=== PATIENT | female | born 1985 | race Caucasian/White ===

== ENCOUNTER 2022-02-09 11:40 | Inpatient (IN) | payer SELFPAY ==
[~2022-02-09] VITALS: Ht 170.2 cm; Wt 63.1 kg
[2022-02-09 12:19] LABS: BASOPHILS # (AUTO) 0.1 (0.0-0.1); BASOPHILS % 0.7 % (0.0-1.0); EOSINOPHILS # (AUTO) 0.2 (0.0-0.4); EOSINOPHILS % 2.3 % (0.0-6.0); LYMPHOCYTES # (AUTO) 1.4 (1.0-3.2); LYMPHOCYTES % 18.6 % (18.0-39.1); MEAN CORPUSCULAR HEMOGLOBIN 28.5 pg (28-32); MEAN CORPUSCULAR HGB CONC 34.5 g/dL (31-35); MEAN CORPUSCULAR VOLUME 82.5 fL (81-99); MONOCYTES # (AUTO) 0.8 (0.2-0.8); MONOCYTES % 10.3 % (4.4-11.3); NEUTROPHILS # (AUTO) 4.9 (2.1-6.9); NEUTROPHILS % 67.5 % (38.7-80.0); PLATELET COUNT 87 x10e3/uL (140-360); RED BLOOD COUNT 2.46 x10e6/uL (3.6-5.1); RED CELL DISTRIBUTION WIDTH 15.4 % (11.7-14.4)
[2022-02-09 12:21] LABS: HEMATOCRIT 20.3 % (34.2-44.1)
[2022-02-09 12:22] LABS: MAGNESIUM 2.2 MG/DL (1.3-2.1)
[2022-02-09 12:25] LABS: ALBUMIN 3.5 g/dL (3.5-5.0); ALBUMIN/GLOBULIN RATIO 1.3 (0.8-2.0); ANION GAP 18.8 mmol/L (8-16); CALCIUM 9.1 mg/dL (8.4-10.2); CREATININE, SERUM 7.11 mg/dL (0.57-1.11); POTASSIUM 3.8 mmol/L (3.5-5.1)
[2022-02-09] MEDS: HYDRALAZINE HCL 20 MG/ML VIAL IV PRN ×3 (13:25→23:59)
[2022-02-09] MEDS: HYDROCODONE/APAP 5MG-325MG TAB PO PRN ×2 (13:50→20:06)
[2022-02-09] MEDS ORDERED: CLONIDINE HCL 0.2 MG TAB PO ONE (14:00)
[2022-02-09] MEDS ORDERED: SODIUM CHLORIDE FLUSH 10 ML SYR INJ PRN (14:45)
[2022-02-09 17:32] VITALS: BP 165/118
[2022-02-09 17:37] VITALS: BP 165/118
[2022-02-09 17:48] VITALS: BP 165/118
[2022-02-09 19:34] VITALS: BP 179/112
[2022-02-09 20:35] LABS: CREATINE KINASE MB 0.6 ng/mL (0-5.0)
[2022-02-09 23:38] VITALS: BP 179/112
[2022-02-09 23:57] VITALS: BP 179/99
[2022-02-10] VITALS (9 sets, daily range): BP systolic 150–190; BP diastolic 85–112
[2022-02-10] MEDS ORDERED: ACETAMINOPHEN 325 MG TAB PO PRN (00:15)
[2022-02-10] MEDS ORDERED: POLYETHYLENE GLYCOL 3350 17 GM PACK PO PRN (00:15)
[2022-02-10 01:11] LABS: CREATINE KINASE MB 0.5 ng/mL (0-5.0)
[2022-02-10] MEDS: HYDROCODONE/APAP 5MG-325MG TAB PO PRN ×2 (04:48→11:08)
[2022-02-10 04:56] LABS: BASOPHILS % 0.8 % (0.0-1.0); EOSINOPHILS # (AUTO) 0.2 (0.0-0.4); EOSINOPHILS % 3.1 % (0.0-6.0); LYMPHOCYTES # (AUTO) 1.5 (1.0-3.2); LYMPHOCYTES % 29.1 % (18.0-39.1); MEAN CORPUSCULAR HEMOGLOBIN 27.8 pg (28-32); MEAN CORPUSCULAR HGB CONC 31.9 g/dL (31-35); MEAN CORPUSCULAR VOLUME 87.1 fL (81-99); MONOCYTES # (AUTO) 0.6 (0.2-0.8); MONOCYTES % 11.2 % (4.4-11.3); NEUTROPHILS # (AUTO) 2.8 (2.1-6.9); NEUTROPHILS % 55.6 % (38.7-80.0); PLATELET COUNT 93 x10e3/uL (140-360); RED BLOOD COUNT 2.41 x10e6/uL (3.6-5.1); RED CELL DISTRIBUTION WIDTH 15.4 % (11.7-14.4)
[2022-02-10 05:13] LABS: ALBUMIN 3.2 g/dL (3.5-5.0); ALBUMIN/GLOBULIN RATIO 1.2 (0.8-2.0); ANION GAP 15.1 mmol/L (8-16); CALCIUM 9.2 mg/dL (8.4-10.2); CHOL/HDL RATIO 3.5 (3.0-3.6); CREATININE, SERUM 8.62 mg/dL (0.57-1.11); POTASSIUM 4.1 mmol/L (3.5-5.1)
[2022-02-10 05:41] LABS: THYROID STIMULATING HORMONE 2.849 uIU/mL (0.350-4.940)
[2022-02-10 05:47] LABS: HEMOGLOBIN 6.7 g/dL (12.0-16.0)
[2022-02-10] MEDS: HYDRALAZINE HCL 20 MG/ML VIAL IV PRN ×3 (06:17→17:24)
[2022-02-10 07:14] LABS: CREATINE KINASE MB 0.4 ng/mL (0-5.0)
[2022-02-10] MEDS ORDERED: FAMOTIDINE 20 MG TAB PO SCH (07:30)
[2022-02-10] MEDS: DOCUSATE SODIUM 100 MG CAP PO SCH ×2 (08:35→17:00)
[2022-02-10] MEDS ORDERED: SODIUM CHLORIDE 0.9% 250ML 250 ML IV ONE (13:00)
[2022-02-10] MEDS ORDERED: CLONIDINE HCL 0.2 MG/24 HR 1 EA PATCH TOP SCH (14:00)
[2022-02-10] MEDS: Morphine 4mg INJECTION 4 MG/ML INJ IV PRN ×2 (14:31→20:23)
[2022-02-10] MEDS ORDERED: SODIUM CHLORIDE 0.9% 1000ML 2,000 ML ONE (15:38)
[2022-02-10] MEDS ORDERED: EPOETIN ALFA-EPBX 10,000 UNIT/ML VIAL SC SCH ×2 (17:00→20:00)
[2022-02-10] MEDS: NIFEDIPINE CR 30 MG TAB PO SCH (18:30)
[2022-02-10] MEDS ORDERED: NIFEDIPINE ER30 M1 PO (19:34)
[2022-02-10] MEDS ORDERED: NICOTINE PATCH1 EAC1 TOP (19:34)
[2022-02-10] MEDS ORDERED: LASIX40 MG PO (19:34)
[2022-02-10] MEDS ORDERED: BUTALB-ACETAMI1 EACH PO (19:34)
[2022-02-10] MEDS ORDERED: CARVEDILOL12.5 MG PO (19:34)
[2022-02-10] MEDS ORDERED: Cholecalciferol PO (19:34)
[2022-02-10] MEDS ORDERED: RENAGEL800 MG PO (19:34)
[2022-02-10] MEDS ORDERED: HYDRALAZINE HC100 MG PO (19:34)
[2022-02-10] MEDS ORDERED: CALCITRIOL0.25 MCG PO (19:34)
[2022-02-10] MEDS ORDERED: PANTOPRAZOLE SO40 MG PO (19:34)
[2022-02-10] MEDS ORDERED: HYDROCODON-ACE1 EA11 PO (19:34)
[2022-02-10] MEDS ORDERED: HEPARIN SOD (PORCINE) 1000 UNIT/ML SDV ONE (19:44)
[2022-02-10] MEDS ORDERED: NIFEDIPINE CR 30 MG TAB PO SCH (20:00)
[2022-02-10 21:18] LABS: ANION GAP 19.3 mmol/L (8-16); CALCIUM 8.7 mg/dL (8.4-10.2); CREATININE, SERUM 4.29 mg/dL (0.57-1.11); POTASSIUM 3.3 mmol/L (3.5-5.1)
[2022-02-11 00:42] VITALS: BP 150/85
[2022-02-11] MEDS: ONDANSETRON HCL INJ 2MG/ML 2ML 2 MG/ML VIAL IV PRN ×2 (00:55→04:52)
[2022-02-11] MEDS: HYDROCODONE/APAP 5MG-325MG TAB PO PRN ×3 (02:12→15:39)
[2022-02-11 04:27] VITALS: BP 173/107
[2022-02-11] MEDS: HYDRALAZINE HCL 20 MG/ML VIAL IV PRN (04:52)
[2022-02-11] MEDS: Morphine 4mg INJECTION 4 MG/ML INJ IV PRN (04:52)
[2022-02-11 04:57] LABS: BASOPHILS # (AUTO) 0.1 (0.0-0.1); BASOPHILS % 0.9 % (0.0-1.0); EOSINOPHILS # (AUTO) 0.2 (0.0-0.4); EOSINOPHILS % 3.4 % (0.0-6.0); HEMATOCRIT 26.5 % (34.2-44.1); HEMOGLOBIN 8.8 g/dL (12.0-16.0); LYMPHOCYTES # (AUTO) 0.8 (1.0-3.2); LYMPHOCYTES % 14.8 % (18.0-39.1); MEAN CORPUSCULAR HEMOGLOBIN 28.5 pg (28-32); MEAN CORPUSCULAR HGB CONC 33.2 g/dL (31-35); MEAN CORPUSCULAR VOLUME 85.8 fL (81-99); MONOCYTES # (AUTO) 0.6 (0.2-0.8); MONOCYTES % 10.7 % (4.4-11.3); NEUTROPHILS # (AUTO) 3.9 (2.1-6.9); PLATELET COUNT 84 x10e3/uL (140-360); RED BLOOD COUNT 3.09 x10e6/uL (3.6-5.1); RED CELL DISTRIBUTION WIDTH 14.6 % (11.7-14.4)
[2022-02-11 05:21] LABS: CALCIUM 8.7 mg/dL (8.4-10.2); CREATININE, SERUM 5.68 mg/dL (0.57-1.11)
[2022-02-11 08:00] VITALS: BP 184/102
[2022-02-11 08:26] VITALS: BP 184/102
[2022-02-11] MEDS ORDERED: FAMOTIDINE 20 MG TAB PO SCH (08:30)
[2022-02-11] MEDS ORDERED: FUROSEMIDE 40 MG TAB PO SCH (09:00)
[2022-02-11] MEDS ORDERED: NIFEDIPINE CR 30 MG TAB PO SCH (09:00)
[2022-02-11] MEDS: NIFEDIPINE CR 30 MG TAB PO SCH (09:17)
[2022-02-11] MEDS: SEVELAMER CARBONATE 800 MG TAB PO SCH ×3 (09:17→16:09)
[2022-02-11] MEDS: DOCUSATE SODIUM 100 MG CAP PO SCH ×2 (09:19→16:07)
[2022-02-11] MEDS: CARVEDILOL 12.5 MG TAB PO SCH ×2 (09:19→16:08)
[2022-02-11 11:44] VITALS: BP 194/111
[2022-02-11] MEDS ORDERED: HYDRALAZINE HCL 100 MG TABLET PO SCH (15:00)
[2022-02-11] MEDS ORDERED: tylenol #3 PO (15:40)
== END 2022-02-11 17:01 | disposition home or self-care (01) | DRG 682 ==
LOC: ER 11:48 → ERHOLD 14:40 → MED/SURG 17:41
PROVIDERS: ADMIT Internal Medicine; ATTEND Internal Medicine
PROC: 5A1D70Z Performance of Urinary Filtration, Intermittent, Less than 6 Hours Per Day (ICD-10-PCS; principal; 2022-02-10)
PROC: 30243N1 Transfusion of Nonautologous Red Blood Cells into Central Vein, Percutaneous Approach (ICD-10-PCS; 2022-02-10)
DX: I12.0 Hypertensive chronic kidney disease with stage 5 chronic kidney disease or end stage renal disease (principal); N18.6 End stage renal disease; Z99.2 Dependence on renal dialysis; G89.29 Other chronic pain; H53.8 Other visual disturbances; Z20.822 Contact with and (suspected) exposure to COVID-19; F17.200 Nicotine dependence, unspecified, uncomplicated
CPT/HCPCS: 0223U; 36415; 70450; 71045; 76770; 80048; 80053; 80061; 82550; 82553; 83036; 83735; 83880; 84100; 84443; 84484; 85025; 86705; 86706; 86850; 86900; 86920; 87340; 93005; 94799; 99284; J0360; J1644; J2270; J2405; J7030; P9016